=== PATIENT | male | born 1970 | race Caucasian/White ===

== ENCOUNTER 2021-02-02 11:48 | Inpatient (IN) | payer OTHER ==
[2021-02-02 13:10] VITALS: BMI 30.4
[2021-02-02] MEDS ORDERED: ONDANSETRON *ODT* 4 MG TABLET SL PRN (15:16)
[2021-02-02] MEDS ORDERED: LORazepam 1 MG TABLET PO PRN (15:16)
[2021-02-02] MEDS ORDERED: BISMUTH SUBSALICYLATE 524 MG/30 ML PO PRN (15:16)
[2021-02-02] MEDS ORDERED: MENTHOL/PHENOL 1 EACH UD MM PRN (15:16)
[2021-02-02] MEDS ORDERED: METHOCARBAMOL 500 MG TABLET PO PRN (15:16)
[2021-02-02] MEDS ORDERED: NICOTINE 10 MG CARTRIDGE (INHALER) IH PRN (15:16)
[2021-02-02] MEDS ORDERED: ACETAMINOPHEN 325 MG TABLET (FP) PO PRN ×2 (15:16)
[2021-02-02] MEDS ORDERED: MAGNESIUM CITRATE 300 ML BOTTLE PO PRN (15:16)
[2021-02-02] MEDS ORDERED: IBUPROFEN 400 MG TABLET (FP) PO PRN (15:16)
[2021-02-02] MEDS ORDERED: MAGNESIUM HYDROX 2400MG/30ML ORAL SUSPENSION 30 ML CUP PO PRN (15:16)
[2021-02-02] MEDS ORDERED: MAG HYDROX/AL HYDROX/SIMETH 30 ML UNIT-DOSE CUP PO PRN (15:16)
[2021-02-02] MEDS ORDERED: clonazePAM 0.5 MG ODT TABLETS SL PRN (15:16)
[2021-02-02] MEDS ORDERED: cloNIDine HCL 0.1 MG TABLET PO PRN (15:16)
[2021-02-02] MEDS ORDERED: methaDONE HCL 10 MG TABLET (FOR DETOX USE ONLY) PO ONE (16:00)
[2021-02-02] MEDS: LORazepam 2 MG TABLET PO SCH ×2 (17:29→22:28)
[2021-02-02] MEDS: hydrOXYzine PAMOATE 25 MG CAPSULE (FP) PO SCH ×2 (18:07→22:27)
[2021-02-02] MEDS: DOXYCYCLINE HYCLATE 100 MG TABLET PO SCH (18:07)
[2021-02-02] MEDS ORDERED: PATIENT'S OWN MEDICATION (NON-FORMULARY) (Gabapentin [Gabapentin] 800 MG Tablet) PO SCH (22:00)
[2021-02-02] MEDS ORDERED: MELATONIN 5 MG TABLETS PO SCH (22:00)
[2021-02-02] MEDS: APIXABAN 5 MG TABLET PO SCH (22:27)
[2021-02-02] MEDS: THIAMINE HCL 100 MG TABLET (FP) PO SCH (22:27)
[2021-02-02] MEDS: GABAPENTIN 300 MG CAPSULE PO SCH (22:27)
[2021-02-03] MEDS: GABAPENTIN 300 MG CAPSULE PO SCH ×3 (05:28→22:18)
[2021-02-03] MEDS: hydrOXYzine PAMOATE 25 MG CAPSULE (FP) PO SCH ×5 (05:28→22:18)
[2021-02-03] MEDS: LORazepam 2 MG TABLET PO SCH ×4 (05:29→22:18)
[2021-02-03] MEDS: DOXYCYCLINE HYCLATE 100 MG TABLET PO SCH ×2 (06:21→18:12)
[2021-02-03] MEDS ORDERED: methaDONE HCL 10 MG TABLET (FOR DETOX USE ONLY) ONE (08:48)
[2021-02-03] MEDS: APIXABAN 5 MG TABLET PO SCH ×2 (10:19→22:19)
[2021-02-03] MEDS: PRENATAL VITAMINS W/ FOLIC ACID TABLET (FP) PO SCH (10:19)
[2021-02-03] MEDS: PANTOPRAZOLE 40 MG TABLET PO SCH (10:19)
[2021-02-03 10:56] LABS: HEMATOCRIT 44.1 % (35.4-49); MCH 31.5 pg (25.7-33.7); MCHC 34.1 g/dl (32.0-35.9); MEAN CELL VOLUME 92.3 fl (80-96); MEAN PLT VOLUME 8.2 fl (7.5-11.1); PLATELET COUNT 337 10^3/uL (134-434); RBC 4.78 M/mm3 (4.00-5.60); RDW 14.7 % (11.9-15.9); WHITE BLOOD COUNT 7.8 K/mm3 (4.0-10.0)
[2021-02-03 11:05] LABS: BLOOD UREA NITROGEN 15.2 mg/dL (7-18)
[2021-02-03 11:06] LABS: CALCIUM 8.8 mg/dL (8.5-10.1)
[2021-02-03 11:08] LABS: CREATININE 0.8 mg/dL (0.55-1.3)
[2021-02-03 11:10] LABS: TOT PROT 6.3 g/dl (6.4-8.2)
[2021-02-03 11:12] LABS: BILIRUBIN,TOTAL 0.7 mg/dL (0.2-1)
[2021-02-03 14:10] LABS: HIV INTERPRETATION NEGATIVE (NEGATIVE)
[2021-02-03] MEDS ORDERED: QUEtiapine FUMARATE 100 MG TABLET (FP) PO SCH (22:00)
[2021-02-03] MEDS ORDERED: traZODone HCL 50 MG TABLET (FP) PO SCH (22:00)
[2021-02-03] MEDS: THIAMINE HCL 100 MG TABLET (FP) PO SCH (22:19)
[2021-02-04] MEDS: hydrOXYzine PAMOATE 25 MG CAPSULE (FP) PO SCH ×2 (05:50→10:39)
[2021-02-04] MEDS: LORazepam 1 MG TABLET PO SCH ×2 (05:50→10:36)
[2021-02-04] MEDS: GABAPENTIN 300 MG CAPSULE PO SCH (05:50)
[2021-02-04] MEDS: DOXYCYCLINE HYCLATE 100 MG TABLET PO SCH (05:50)
[2021-02-04 08:56] VITALS: TEMP 97.3
[2021-02-04] MEDS ORDERED: SERTRALINE HCL 50 MG TABLET (FP) PO SCH (10:00)
[2021-02-04] MEDS ORDERED: methaDONE HCL 10 MG TABLET (FOR DETOX USE ONLY) PO ONE (10:00)
[2021-02-04] MEDS: APIXABAN 5 MG TABLET PO SCH (10:35)
[2021-02-04] MEDS: PRENATAL VITAMINS W/ FOLIC ACID TABLET (FP) PO SCH (10:35)
[2021-02-04] MEDS: PANTOPRAZOLE 40 MG TABLET PO SCH (10:36)
[2021-02-04 13:16] VITALS: BP 134/88; PULSE 73
[2021-02-05] MEDS ORDERED: LORazepam 0.5 MG TABLET PO PRN
[2021-02-05] MEDS ORDERED: LORazepam 0.5 MG TABLET PO SCH (05:00)
[2021-02-06] MEDS ORDERED: LORazepam 0.5 MG TABLET PO ONE (05:00)
[2021-02-06] MEDS ORDERED: methaDONE HCL 10 MG TABLET (FOR DETOX USE ONLY) PO ONE (10:00)
== END 2021-02-04 13:50 | disposition left against medical advice (07) | DRG 770 ==
LOC: YASAS 11:48 → Y3N 14:58
PROVIDERS: ADMIT Allergy & Immunology; ATTEND Allergy & Immunology
PROC: HZ2ZZZZ Detoxification Services for Substance Abuse Treatment (ICD-10-PCS; principal; 2021-02-02)
DX: F11.23 Opioid dependence with withdrawal (principal); F10.230 Alcohol dependence with withdrawal, uncomplicated; F17.210 Nicotine dependence, cigarettes, uncomplicated; F19.24 Other psychoactive substance dependence with psychoactive substance-induced mood disorder; F19.282 Other psychoactive substance dependence with psychoactive substance-induced sleep disorder; F31.9 Bipolar disorder, unspecified; F41.9 Anxiety disorder, unspecified; I80.9 Phlebitis and thrombophlebitis of unspecified site; K21.9 Gastro-esophageal reflux disease without esophagitis; Z86.19 Personal history of other infectious and parasitic diseases
CPT/HCPCS: 36415; 80053; 82947; 85027; 86780; 87389; 93005; 93010; C9803; Q0162; U0003; U0005